=== PATIENT | female | born 1960 | race African-American/Black ===

== ENCOUNTER 2021-12-26 05:19 | Emergency (ER) | payer MEDICAID ==
[~2021-12-26] VITALS: Ht 167.6 cm; Wt 77.3 kg
[~2021-12-26 05:19] MED LIST: HYPERTENSION MEDS
[2021-12-26] MEDS ORDERED: KETOROLAC TROMETHAMINE 30 MG/ML VIAL IM ONE (06:30)
[2021-12-26] MEDS ORDERED: CYCLOBENZAPRINE HCL 10 MG TABLET PO ONE (06:30)
[2021-12-26] MEDS ORDERED: LIDOCAINE 5% TRANSDERMAL PATCH TD ONE (06:30)
[2021-12-26] MEDS ORDERED: LORazepam 1 MG TABLET PO ONE (06:30)
[2021-12-26 06:44] VITALS: BP 149/112
[2021-12-26] MEDS ORDERED: IBUP-2070 PO (07:37)
[2021-12-26] MEDS ORDERED: HYDR50CA7 PO (07:37)
== END 2021-12-26 08:08 | disposition home or self-care (01) ==
LOC: EMS 05:20
DX: G89.29 Other chronic pain (principal); F41.9 Anxiety disorder, unspecified; I10 Essential (primary) hypertension; F17.210 Nicotine dependence, cigarettes, uncomplicated; Z98.890 Other specified postprocedural states
CPT/HCPCS: 99284; 96372; J1885

== ENCOUNTER 2024-02-29 07:39 | Emergency (ER) | payer MEDICAID ==
[~2024-02-29] VITALS: Ht 167.6 cm; Wt 72.7 kg
[~2024-02-29 07:39] MED LIST changes: +HYDR50CA7 PO; +IBUP-1492 PO
[2024-02-29] MEDS ORDERED: LISI-658 PO (07:51)
[2024-02-29] MEDS ORDERED: FAMO20 PO (07:51)
[2024-02-29] MEDS ORDERED: MIRT-89 PO (07:51)
[2024-02-29 08:00] LABS: GLUCOMETER DEV NAME(LOC) ER.7; GLUCOSE,POINT OF CARE 131 MG/DL (70-110)
[2024-02-29] MEDS: KETOROLAC TROMETHAMINE 30 MG/ML VIAL IM ONE (09:34)
[2024-02-29 09:37] VITALS: BP 140/88; PULSE 87; RESP 18; TEMP 98; O2SAT 100
[2024-02-29] MEDS ORDERED: TRAM50TA5 PO (09:42)
[2024-03-01] MEDS ORDERED: TRAM50TA5 PO ×2 (09:34→13:19)
== END 2024-02-29 09:55 | disposition home or self-care (01) ==
LOC: EMS 07:43
DX: M77.32 Calcaneal spur, left foot (principal); F41.9 Anxiety disorder, unspecified; I10 Essential (primary) hypertension; F12.90 Cannabis use, unspecified, uncomplicated; Z79.899 Other long term (current) drug therapy
CPT/HCPCS: 99283; 82962; 73630; 96372; J1885